=== PATIENT | female | born 1965 | race Asian ===

== ENCOUNTER → 2016-07-14 | Day surgery (SDC) | payer BC ==
--- NOTE | 2016-07-15 14:06 | PATH ---
Cytology Non-Gynecological Report Patient Name: AUDI GUERRERO [facility]. Rec. #: [id number] /Age/Gender: 1965 (Age: 50) / F Account: [id number] Location: RADIOLOGY Taken: 07/14/2016 Received: 07/14/2016 Reported: 07/15/2016 Physicians: Jsesica Coates M.D. Specimen(s) Received LEFT THYROID Clinical History Left 2.31 x 1.87 x 1.82 cm Final Diagnosis THYROID, LEFT, FINE NEEDLE ASPIRATION: BETHESDA CATEGORY I: NONDIAGNOSTIC SPECIMEN (CYST FLUID ONLY). MACROPHAGES, BLOOD, AND DEBRIS. Comment: Recommend correlation with clinical and radiologic findings and follow up as clinically indicated. Electronically Signed Kailash Staples M.D. Gross Description Received are eight direct smears, four of which are air-dried and Diff-Quik stained, and four of which are alcohol fixed and Pap stained. Also received is 20 ml of bloody formalin from which one cellblock is prepared.
== END | disposition home or self-care (01) ==
LOC: JRADIR 09:05
PROVIDERS: ATTEND Internal Medicine Endocrinology, Diabetes & Metabolism
PROC: 0G9G3ZX Drainage of Left Thyroid Gland Lobe, Percutaneous Approach, Diagnostic (ICD-10-PCS; principal; 2016-07-14)
PROC: BG44ZZZ Ultrasonography of Thyroid Gland (ICD-10-PCS; 2016-07-14)
DX: E04.1 Nontoxic single thyroid nodule (principal)
CPT/HCPCS: 76942; 88173; 88305-TC

== ENCOUNTER 2017-12-25 21:28 | Emergency (ER) | payer BC ==
[2017-12-25 21:45] VITALS: BP 127/78; PULSE 75; TEMP 98.4; BMI 24.7
--- NOTE | 2017-12-25 22:06 | PDOC ---
History of Present Illness - General History Source: Patient Exam Limitations: No Limitations - History of Present Illness Initial Comments: 12/25/17 23:22 Patient is a 52 year old female with a past medical history of Hypothyroidism, Hysterectomy for uterine prolapse, who presents to the ED with complaints of right sided head pain secondary to fall that occured x2 days ago. Patient reports laying in bed when she attempted to reach her clock to check the time when she slipped off her bed, hitting the right side of her head on her night stand and her left side on the floor causing immediate pain. She reports drinking water and taking advil shortly after the fall with minimal relief, stating she believed the pain to alleviate over time. Patient reports gradual increase in pain over time prompting her to come into the ED for further evaluation. She reports experiencing left shoulder pain, left neck pain, left sided chest pain that is increased with deep inspiration and left sided rib pain secondary to fall. Denies chest pain, sob. Denies nausea, vomiting. Denies contact with sick individuals, out of state travelling. Denies dysuria, hematuria. Denies fevers, chills. Denies loss of consciousness, blurred vision. Denies any other symptoms. Allergies: NKDA Social history: Lives with . No smoking. No alcohol. No illicit drugs. Surgical history: None PMD: None <Paul Oneil - Last Filed: 12/25/17 23:36> <Flor Chun - Last Filed: 12/26/17 05:00> - General Chief Complaint: Injury Stated Complaint: FELL OUT OF BED 2 DAYS AGO, PAINTO LEFT SHOULDER/N Time Seen by Provider: 12/25/17 21:42 Past History <Paul Oneil - Last Filed: 12/25/17 23:36> - Past Medical History COPD: No Thyroid Disease: Yes - Suicide/Smoking/Psychosocial Hx Smoking History: Never smoked Have you smoked in the past 12 months: No Information on smoking cessation initiated: No Hx Alcohol Use: No Drug/Substance Use Hx: No Substance Use Type: None <Flor Chun - Last Filed: 12/26/17 05:00> - Past Medical History Allergies/Adverse Reactions: Allergies Allergy/AdvReac Type Severity Reaction Status Date / Time No Known Allergies Allergy Verified 12/25/17 21:31 Home Medications: Ambulatory Orders Levothyroxine [Synthroid -] 100 mcg PO DAILY 09/25/13 Diclofenac Sodium [Voltaren -] 75 mg PO BID PRN #20 tablet. 12/25/17 Review of Systems - Review of Systems Able to Perform ROS?: Yes Comments:: 12/25/17 23:23 GENERAL/CONSTITUTIONAL: No fever or chills. No weakness. HEAD, EYES, EARS, NOSE AND THROAT: +Right sided head pain. No change in vision. No ear pain or discharge. No sore throat. CARDIOVASCULAR: +Left sided chest pain. No shortness of breath. RESPIRATORY: No cough, wheezing, or hemoptysis. GASTROINTESTINAL: No nausea, vomiting, diarrhea or constipation. GENITOURINARY: No dysuria, frequency, or change in urination. MUSCULOSKELETAL:+Left shoulder pain. +Left rib pain. No joint or muscle swelling. No back pain. SKIN: No rash NEUROLOGIC: No headache, vertigo, loss of consciousness, or change in strength/ sensation. ENDOCRINE: No increased thirst. No abnormal weight change. HEMATOLOGIC/LYMPHATIC: No anemia, easy bleeding, or history of blood clots. ALLERGIC/IMMUNOLOGIC: No hives or skin allergy. <Paul Oneil - Last Filed: 12/25/17 23:36> *Physical Exam - Vital Signs Last Vital Signs Temp Pulse Resp BP Pulse Ox 98.4 F 75 16 127/78 100 12/25/17 21:32 12/25/17 21:32 12/25/17 21:32 12/25/17 21:32 12/25/17 21:32 - Physical Exam Comments: 12/25/17 23:36 GENERAL: Awake, alert, and fully oriented, in no acute distress HEAD: No signs of trauma EYES: PERRLA, EOMI, sclera anicteric, conjunctiva clear ENT: Auricles normal inspection, hearing grossly normal, nares patent, oropharynx clear without exudates. Moist mucosa NECK: +Tenderness of the left paraspinal muscle on the left side. No midline tenderness present. Normal ROM, supple, no lymphadenopathy, JVD, or masses LUNGS: Breath sounds equal, clear to auscultation bilaterally. No wheezes, and no crackles HEART: Regular rate and rhythm, normal S1 and S2, no murmurs, rubs or gallops ABDOMEN: Soft, nontender, normoactive bowel sounds. No guarding, no rebound. No masses EXTREMITIES: +1.5 cm in diameter mildly tender edematous of the right parietal scalp with no abrasion, laceration or other skin breakage seen. +Mild tenderness of the proximal left humerus without deformity edema or ecchymosis MUSCULOSKELETAL: +Mild generalized tenderness of the left upper anterior chest wall with out rib step off or crepitus. Normal range of motion, no edema. No clubbing or cyanosis. No cords, erythema, or tenderness NEUROLOGICAL: Cranial nerves II through XII grossly intact. Normal speech, normal gait SKIN: Warm, Dry, normal turgor, no rashes or lesions noted. <Paul Oneil - Last Filed: 12/25/17 23:36> - Vital Signs Last Vital Signs Temp Pulse Resp BP Pulse Ox 98.4 F 75 16 127/78 100 12/25/17 21:32 12/25/17 21:32 12/25/17 21:32 12/25/17 21:32 12/25/17 21:32 <Flor Chun - Last Filed: 12/26/17 05:00> Progress Note - Progress Note Progress Note: Documentation has been prepared under my direction and personally reviewed by me in its entirety. I attest that this documented accurately reflects all work, treatment, procedures and medical decision making performed by me. <Flor Chun - Last Filed: 12/26/17 05:00> Medical Decision Making - Medical Decision Making As noted above, this 52-year-old woman presents few days after sustaining injury in a fall in her home: Patient fell out of bed striking the right side of her head and the left upper chest/left shoulder area against either the bed frame or the nightstand. There was no loss of consciousness the patient has had pain in the area of impact on the right side of her head since injury. She has also had pain and tenderness in the upper portion of her left anterior chest wall. Exam as noted. Noncontrast head CT and left rib series x-ray performed. Noncontrast head CT shows no evidence of skull fracture or intracranial acute process. ( Interpreted by Dr. Plascencia of the radiology staff) Left rib series interpreted by me : no evidence of clavicle fracture/proximal humerus fracture/rib fracture. Lung gar are clear of infiltrates/contusion/ effusion Clinical presentation most consistent with scalp contusion/chest wall contusion. <Jami Chundavey Nunez - Last Filed: 12/26/17 05:00> *DC/Admit/Observation/Transfer <Paul Oneil - Last Filed: 12/25/17 23:36> <AdielFlor Nunez - Last Filed: 12/26/17 05:00> Diagnosis at time of Disposition: Scalp contusion Qualifiers: Encounter type: initial encounter Qualified Code(s): S00.03XA - Contusion of scalp, initial encounter Contusion of ribs Qualifiers: Encounter type: initial encounter Laterality: unspecified laterality Qualified Code(s): S20.219A - Contusion of unspecified front wall of thorax, initial encounter - Discharge Dispostion Disposition: HOME Condition at time of disposition: Stable - Prescriptions Prescriptions: Diclofenac Sodium [Voltaren -] 75 mg PO BID PRN #20 tablet.dr AJ Reason: Moderate Pain - Patient Instructions Printed Discharge Instructions: DI for Rib Contusion Additional Instructions: Avoid strenuous activity involving upper body muscles for the next 1-2 weeks Diclofenac 75 mg twice a day as needed for pain-take with food Return to ER or see your doctor if pain as severity develop is severe or you develop shortness of breath/cough
== END 2017-12-25 23:48 | disposition home or self-care (01) ==
LOC: FER 21:28
DX: S00.03XA Contusion of scalp, initial encounter (principal); S20.219A Contusion of unspecified front wall of thorax, initial encounter; W18.39XA Other fall on same level, initial encounter; Y93.89 Activity, other specified; Y92.9 Unspecified place or not applicable
CPT/HCPCS: 70450-TC; 71101-TC-FY; 99281-25

== ENCOUNTER 2018-07-01 20:21 | Emergency (ER) | payer BC ==
[2018-07-01] MEDS ORDERED: IBUPROFEN 400 MG TABLET (FP) PO ONE ×2 (20:29→20:53)
--- NOTE | 2018-07-01 20:29 | PDOC ---
History of Present Illness - General History Source: Patient Exam Limitations: No Limitations - History of Present Illness Initial Comments: 07/01/18 20:31 The patient is a 52 year old with a past medical history of hypothyroidism here today for evaluation of knee pain. The patient reports that she felt a pop in her left knee when she stood up from a chair. She reports that she feels constant, 8/10 pain in the lateral and medial aspects of the knee and in the back of the calf. She notes that this pain can radiate down to her ankle. Patient reports taking advil with mild relief. Patient denies headache, lightheadedness. Denies fever, chills. Denies chest pain, shortness of breath. Denies nausea, vomiting, diarrhea, abdominal pain. Denies lower extremity edema. Allergies: NKA Surgical history: hysterectomy PCP: John Foley <Ash Pearce - Last Filed: 07/01/18 20:34> <Willis Shirley - Last Filed: 07/02/18 03:37> - General Chief Complaint: Pain Stated Complaint: LEFT KNEE PAIN & SWELLING Time Seen by Provider: 07/01/18 20:28 Past History <Ash Pearce - Last Filed: 07/01/18 20:34> - Past Medical History COPD: No Thyroid Disease: Yes - Suicide/Smoking/Psychosocial Hx Smoking History: Never smoked Have you smoked in the past 12 months: No Hx Alcohol Use: No Drug/Substance Use Hx: No Substance Use Type: None <Willis Shirley - Last Filed: 07/02/18 03:37> - Past Medical History Allergies/Adverse Reactions: Allergies Allergy/AdvReac Type Severity Reaction Status Date / Time No Known Allergies Allergy Verified 07/01/18 21:18 Home Medications: Ambulatory Orders Levothyroxine [Synthroid -] 100 mcg PO DAILY 09/25/13 Review of Systems - Review of Systems Able to Perform ROS?: Yes Comments:: 07/01/18 20:31 GENERAL/CONSTITUTIONAL: No fever or chills. No weakness. HEAD, EYES, EARS, NOSE AND THROAT: No change in vision. No ear pain or discharge. No sore throat. CARDIOVASCULAR: No chest pain or shortness of breath. RESPIRATORY: No cough, wheezing, or hemoptysis. GASTROINTESTINAL: No nausea, vomiting, diarrhea or constipation. GENITOURINARY: No dysuria, frequency, or change in urination. MUSCULOSKELETAL: +left knee pain. +left calf pain. No neck or back pain. SKIN: No rash NEUROLOGIC: No headache, vertigo, loss of consciousness, or change in strength/ sensation. ENDOCRINE: No increased thirst. No abnormal weight change. HEMATOLOGIC/LYMPHATIC: No anemia, easy bleeding, or history of blood clots. ALLERGIC/IMMUNOLOGIC: No hives or skin allergy. <Ash Pearce - Last Filed: 07/01/18 20:34> *Physical Exam - Vital Signs Last Vital Signs Temp Pulse Resp BP Pulse Ox 98.0 F 90 16 127/72 100 07/01/18 20:21 07/01/18 20:21 07/01/18 20:21 07/01/18 20:21 07/01/18 20:21 - Physical Exam Comments: 07/01/18 20:34 GENERAL: Awake, alert, and fully oriented, in no acute distress HEAD: No signs of trauma EYES: PERRLA, EOMI, sclera anicteric, conjunctiva clear ENT: Auricles normal inspection, hearing grossly normal, nares patent, oropharynx clear without exudates. Moist mucosa NECK: Normal ROM, supple, no lymphadenopathy, JVD, or masses LUNGS: Breath sounds equal, clear to auscultation bilaterally. No wheezes, and no crackles HEART: Regular rate and rhythm, normal S1 and S2, no murmurs, rubs or gallops ABDOMEN: Soft, nontender, normoactive bowel sounds. No guarding, no rebound. No masses EXTREMITIES: +left MCL tenderness. No bony tenderness. No joint instability. Distally neurologically intact. Normal range of motion, no edema. No clubbing or cyanosis. No cords, erythema NEUROLOGICAL: Cranial nerves II through XII grossly intact. Normal speech SKIN: Warm, Dry, normal turgor, no rashes or lesions noted. <Ash Pearce - Last Filed: 07/01/18 20:34> Moderate Sedation - Procedure Monitoring Vital Signs: Procedure Monitoring Vital Signs Temperature 98.0 F 07/01/18 20:21 Pulse Rate 90 07/01/18 20:21 Respiratory Rate 16 07/01/18 20:21 Blood Pressure 127/72 07/01/18 20:21 O2 Sat by Pulse Oximetry (%) 100 07/01/18 20:21 <Ash Pearce - Last Filed: 07/01/18 20:34> Medical Decision Making - Medical Decision Making 07/02/18 03:36 plain films-, as read by me, referred to radiology for definitive read a/p knee sprain baldwin wrap crutches <Willis Shirley - Last Filed: 07/02/18 03:37> *DC/Admit/Observation/Transfer - Attestations Scribe Attestion: 07/01/18 20:32 Documentation prepared by LUIS ALBERTO Daily, acting as medical supervisor for Willis Shirley MD. <Ash Pearce - Last Filed: 07/01/18 20:34> <Willis Shirley - Last Filed: 07/02/18 03:37> Diagnosis at time of Disposition: Knee sprain Qualifiers: Encounter type: initial encounter Involved ligament of knee: medial collateral ligament Laterality: left Qualified Code(s): S83.412A - Sprain of medial collateral ligament of left knee, initial encounter - Discharge Dispostion Disposition: HOME Condition at time of disposition: Good - Referrals Referrals: John Foley MD [Primary Care Provider] - Wing Bello MD [Staff Physician] - - Patient Instructions Printed Discharge Instructions: How to Use Crutches, DI for Knee Sprain - Post Discharge Activity
[2018-07-01 20:30] VITALS: BP 127/72; PULSE 90; TEMP 98; BMI 25.6
== END 2018-07-01 21:19 | disposition home or self-care (01) ==
LOC: SUPCPDRO 20:21 → FER 20:21
DX: S83.412A Sprain of medial collateral ligament of left knee, initial encounter (principal); X58.XXXA Exposure to other specified factors, initial encounter; Y93.89 Activity, other specified; Y92.89 Other specified places as the place of occurrence of the external cause; E07.9 Disorder of thyroid, unspecified
CPT/HCPCS: 73560-TC-LT-FY; 99282-25

== ENCOUNTER 2020-12-01 10:14 | Emergency (ER) | payer BC ==
[2020-12-01 10:24] VITALS: BP 119/72; PULSE 74; TEMP 98.1; BMI 25.6
[2020-12-01] MEDS ORDERED: ACETAMINOPHEN 1000 MG/100 ML VIAL (NON FORMULARY) IVPB ONE (10:42)
[2020-12-01] MEDS ORDERED: SODIUM CHLORIDE 0.9% 500 ML INFUS.BAG IV ONE (10:42)
[2020-12-01] MEDS ORDERED: ACETAMINOPHEN INJECTION 100 ML IVPB ONE (10:47)
[2020-12-01 12:07] LABS: BASO % 2.2 % (0-2.0); HEMATOCRIT 41.6 % (32.4-45.2); HEMOGLOBIN 13.7 GM/dl (10.7-15.3); LYMPH % 30.6 % (8-40); MCH 29.5 pg (25.7-33.7); MEAN CELL VOLUME 89.4 fl (80-96); MEAN PLT VOLUME 8.5 fl (7.5-11.1); MONO % 6.3 % (3.8-10.2); NEUT % 56.9 % (42.8-82.8); PLATELET COUNT 309 10^3/uL (134-434); RBC 4.65 M/mm3 (3.60-5.2); RDW 13.2 % (11.6-15.6); WHITE BLOOD COUNT 5.3 K/mm3 (4.0-10.8)
[2020-12-01 12:13] LABS: ACTIVATED PTT 35.6 SECONDS (25.2-36.5)
[2020-12-01 12:14] LABS: ALBUMIN 4.1 g/dl (3.4-5.0); BILIRUBIN,TOTAL 1.1 mg/dl (0.2-1); CALCIUM 9.6 mg/dl (8.5-10); CREATININE 0.7 mg/dl (0.55-1.3); MAGNESIUM 1.6 mg/dL (1.8-2.4); TOT PROT 7.2 g/dl (6.4-8.2)
[2020-12-01 12:17] LABS: INR 0.96 (0.82-1.09); PROTHROMBIN TIME (PATIENT) 10.8 SEC (10.2-13.0)
== END 2020-12-01 15:46 | disposition home or self-care (01) ==
LOC: FER 10:14
PROC: 3E033GC Introduction of Other Therapeutic Substance into Peripheral Vein, Percutaneous Approach (ICD-10-PCS; principal; 2020-12-01)
DX: N83.201 Unspecified ovarian cyst, right side (principal); R10.32 Left lower quadrant pain
CPT/HCPCS: 36415; 74177-TC; 76830-TC; 76856-TC; 80053; 81003; 83605; 83735; 85025; 85610; 85730; 87086; 99285-25; J0131

== ENCOUNTER 2021-03-19 09:04 | Day surgery (SDC) | payer BC ==
[2021-03-18 11:17] VITALS: BMI 25.6
[2021-03-19 10:48] VITALS: PULSE 74; TEMP 97.9
[2021-03-19 11:04] VITALS: BP 105/58
== END 2021-03-19 11:20 | disposition home or self-care (01) ==
LOC: FASU-ENDO 09:04
PROVIDERS: ATTEND Internal Medicine Gastroenterology
PROC: 0DJD8ZZ Inspection of Lower Intestinal Tract, Via Natural or Artificial Opening Endoscopic (ICD-10-PCS; principal; 2021-03-19 10:23)
DX: Z12.11 Encounter for screening for malignant neoplasm of colon (principal); K64.0 First degree hemorrhoids

== ENCOUNTER 2023-01-11 09:22 | Emergency (ER) | payer BC ==
[2023-01-11] MEDS ORDERED: FAMOTIDINE 20 MG/50 ML IVPB 20 MG/50 ML MG IVPB ONE ×2 (10:07→10:34)
[2023-01-11] MEDS ORDERED: MAG HYDROX/AL HYDROX/SIMETH 30 ML UNIT-DOSE CUP PO ONE (10:07)
[2023-01-11] MEDS ORDERED: SODIUM CHLORIDE 0.9% 500 ML INFUS.BAG IV ONE (10:07)
[2023-01-11] MEDS ORDERED: MAG HYDROX/AL HYDROX/SIMETH 30 ML UNIT-DOSE CUP ONE (10:34)
[2023-01-11 11:09] VITALS: BMI 25.6
[2023-01-11 11:09] LABS: HEMATOCRIT 40.2 % (32.4-45.2); HEMOGLOBIN 13.1 G/dL (10.7-15.3); MCH 29.1 pg (25.7-33.7); MCHC 32.6 g/dl (32.0-36.0); MEAN CELL VOLUME 89.1 fl (80-96); MEAN PLT VOLUME 7.9 fl (7.5-11.1); PLATELET COUNT 284.3 10^3/uL (134-434); RBC 4.51 10^6/uL (3.60-5.2); RDW 14.9 % (11.6-15.6); WHITE BLOOD COUNT 6.7 10^3/uL (4.0-10.8)
[2023-01-11 11:13] LABS: PLATELET ESTIMATE ADEQUATE
[2023-01-11 11:37] LABS: BLOOD UREA NITROGEN 11.4 mg/dl (7-18); CREATININE 0.8 mg/dl (0.6-1.3)
[2023-01-11 11:38] LABS: CALCIUM 9.1 mg/dl (8.5-10.1); POTASSIUM 3.9 mmol/L (3.5-5.1)
[2023-01-11 11:39] LABS: ALBUMIN 4.2 g/dl (3.4-5.0); BILIRUBIN,TOTAL 0.6 mg/dl (0.2-1); SGOT/AST 22.7 U/L (15-37); SGPT/ALT 24.8 U/L (7-52); TOT PROT 6.9 g/dl (6.4-8.2)
[2023-01-11 15:28] VITALS: BP 107/70; PULSE 76; RESP 16; TEMP 97.9
== END 2023-01-11 15:28 | disposition home or self-care (01) ==
LOC: FER 09:22
PROC: 3E033GC Introduction of Other Therapeutic Substance into Peripheral Vein, Percutaneous Approach (ICD-10-PCS; principal; 2023-01-11)
DX: R55 Syncope and collapse (principal); R42 Dizziness and giddiness; R61 Generalized hyperhidrosis; R53.1 Weakness; R10.10 Upper abdominal pain, unspecified; R00.2 Palpitations; Z20.822 Contact with and (suspected) exposure to COVID-19
CPT/HCPCS: 0241U-QW; 36415; 71046-TC-FY; 80053; 81003; 81015; 84443; 84484; 85027; 87086; 93005; 99285-25